=== PATIENT | male | born 1950 | race Caucasian/White ===

== ENCOUNTER 2022-08-24 09:41 | Emergency (ER) | payer MEDICARE, OTHER ==
[~2022-08-24] VITALS: Ht 172.7 cm; Wt 93.4 kg
[2022-08-24 09:45] VITALS: BP 129/76
--- NOTE | 2022-08-24 10:55 | NUR ---
PT TAKEN TO CT.
[2022-08-24] MEDS ORDERED: ACET-8386 PO (11:49)
[2022-08-24] MEDS ORDERED: IBUP-2213 PO (11:49)
[2022-08-24 12:09] VITALS: BP 129/76
--- NOTE | 2022-08-24 12:09 | NUR ---
Patient discharged with v/s stable. Written and verbal after care instructions given and explained. Patient alert, oriented and verbalized understanding of instructions. Ambulatory with spouse to car. All questions addressed prior to discharge. ID band removed. Patient advised to follow up with PMD. Rx of ibuprofen, hydrocodone (sent) given. Patient educated on indication of medication including possible reaction and side effects. Opportunity to ask questions provided and answered. copy of ct given
== END 2022-08-24 12:09 | disposition home or self-care (01) ==
LOC: MED 09:41
DX: S09.90XA Unspecified injury of head, initial encounter (principal); E11.9 Type 2 diabetes mellitus without complications; W19.XXXA Unspecified fall, initial encounter; Y93.89 Activity, other specified; Y92.89 Other specified places as the place of occurrence of the external cause; Y99.8 Other external cause status
CPT/HCPCS: 70450; 99284